=== PATIENT | male | born 1985 | race Caucasian/White ===

== ENCOUNTER → 2021-11-13 16:21 | Outpatient (CLI) | payer OTHER, SELFPAY ==
[2021-11-13 17:03] LABS: COVID19 -Nasal RAPID Negative (Negative)
== END ==
PROVIDERS: PCP Family Medicine; Visit Provider Surgery
DX: Z20.822 Contact with and (suspected) exposure to COVID-19 (principal); Z01.812 Encounter for preprocedural laboratory examination
CPT/HCPCS: 87635; C9803

== ENCOUNTER 2021-11-16 06:45 | Day surgery (SDC) | payer OTHER, SELFPAY ==
[2021-11-12 13:20] VITALS: BMI 32.1
--- NOTE | 2021-11-16 | PATH_ITS ---
[facility] Accession Number: [id number] . 01 Material submitted: . arm - RIGHT ARM MASS . 01 Diagnosis: Soft Tissue, Right Arm, Excision: Angiolipoma. MRV 11/18/2021 1719 Local . 01 Electronically signed: . Brionna Campos MD, Pathologist NPI- [id number] . 01 Gross description: . Received in formalin, labeled with the patient's name and right arm mass, and consists of a yellow, lobulated fragment of soft tissue measuring 3.4 x 1.7 x 0.8 cm. The external surface is inked blue. Serial sectioning reveals a yellow, homogenous, unremarkable cut surface. [employer] Mdm Architect sections are submitted in cassettes A1-A2. ([id number]) /[facility] 11/18/2021 0223 Local . 01 Pathologist provided ICD-10: D21.9 . 01 CPT . 709867 Specimen Comment: A courtesy copy of this report has been sent to [phone] Performed at: [address] [facility] [address] [place] [address], [place], [place] [id number] MD Danie Lobato MD Phone: [phone]
[2021-11-16] MEDS: LACTATED RINGERS 1,000 ML 42 ML IV (07:00)
[2021-11-16 07:16] VITALS: BMI 32.1
[2021-11-16] MEDS: LACTATED RINGERS 1,000 ML 84 ML IV (07:25)
[2021-11-16 07:27] VITALS: BP 122/79; PULSE 58; RESP 16; TEMP 36.4; O2SAT 98
--- NOTE | 2021-11-16 07:44 | PM.PREOP ---
Pre-operative Note COVID-19 COVID-19 status: Negative Result date/Date tested (Pos, Neg/Pending): 11/13/21 Interval Note History & Physical reviewed/Exam performed by Physician: Yes Changes to H&P: No ASA Class (for procedural sedation): I
[2021-11-16] MEDS: LIDOCAINE 1% W/EPI 4 ML INJ (08:02)
--- NOTE | 2021-11-16 08:05 | SUR.OPER ---
Supine on padded OR bed, head on pillow, Left arm secured on padded arm board at <90 degrees abduction, operative arm on padded arm table, legs uncrossed, safety belt at thigh, gel pad under heels.
[2021-11-16] MEDS: BUPIVACAINE 0.25% (PF) VIAL 7 ML INJ (08:10)
[2021-11-16 08:27] VITALS: BP 112/71; PULSE 54; RESP 15; TEMP 36.3; O2SAT 95
--- NOTE | 2021-11-16 08:28 | PM.OP.1 ---
Operative Date/Time/Diagnoses Date of procedure: 11/16/21 Time of procedure: 08:28 Pre-op diagnosis: Right arm mass Post-op diagnosis: same Procedure & Clinicians Procedure: Excisional biopsy of right arm mass Same procedure as scheduled: Yes Surgeon: Aston Lozoya Operative Notes Procedure in detail: The right arm mass was marked in the preop area and consent was signed. The patient was brought to the operating room and placed on the table in the supine position. No antibiotics were required. Sedation was administered and the right arm was prepped and draped in the usual fashion. A time-out was performed. The mass was about 5 cm x 2 cm in oriented in an oblique direction. Lidocaine with epinephrine was injected into the skin over the mass. A skin incision was made with a scalpel parallel to the long axis of the mass. Dermis was divided and a few layers of subcutaneous adipose tissue were divided exposing the mass which appeared to be a fatty lipoma type mass. The mass was entirely superficial to the fascial sheath. The mass was easily dissected free from the surrounding tissue with minimal bleeding. Few bleeders were cauterized. The muscle fascia was never violated. The mass was approximately 5 cm x 2 cm. Additional Marcaine was injected into the muscle fascia, dermis and subcutaneous tissue. The incision was then closed in layers using multiple interrupted 3-0 Vicryl dermal sutures followed by a running 4 Monocryl subcuticular stitch. Steri-Strips were applied followed by a piece of Telfa and the Tegaderm. The wound was then wrapped with Coban. EBL: 5 mL Post-operative Condition: stable Disposition: PACU
[2021-11-16 08:32] VITALS: BP 114/68; PULSE 61; RESP 14; O2SAT 98
[2021-11-16 08:37] VITALS: BP 108/70; PULSE 50; RESP 14; TEMP 36.4; O2SAT 97
[2021-11-16 08:45] VITALS: BP 110/65; PULSE 50; RESP 16; TEMP 36.4; O2SAT 98
[2021-11-16 09:00] VITALS: BP 124/78; PULSE 60; RESP 18; TEMP 36.9; O2SAT 99
== END 2021-11-16 09:05 | disposition home or self-care (01) ==
PROVIDERS: PCP Family Medicine; Referring Provider Surgery; Visit Provider Surgery
PROC: (CPT 25071; principal; 2021-11-16 07:45)
DX: D17.21 Benign lipomatous neoplasm of skin and subcutaneous tissue of right arm (principal)
CPT/HCPCS: 25071; J2250; J3010

== ENCOUNTER 2021-12-29 07:30 | Outpatient (RCR) | payer OTHER, SELFPAY ==
--- NOTE | 2021-11-09 09:30 | PT.OPPOC ---
Physical, Occupational & Speech Therapy At [facility] Current Diagnoses Pain in left knee (11/09/21) Visit Care Team Role Provider Type Donte Dietrich MD Attending Provider Non-Staff Primary Care Provider Referring Provider Specialty: Family Practice Address: [address] [place] [address], [id number] Email: Plan Of Care PT-OP-T Assessment and Plan Start: 11/05/21 16:04 Freq: Status: Active Protocol: Document 11/10/21 08:44 AMB (Rec: 11/10/21 08:55 AMB [id number]) Physical Therapy Assessment Rehab Potential Rehabilitation Potential Good Evaluation Complexity Number of Personal Factors/Comorbidities 0 Number of Body Systems Impaired 3 Clinical Presentation at Evaluation Stable Impairments Impairments Functional Activities,Pain, Strength Goals Three Impairment Strength Short Term Goal (STG) Paul will be independent and consistent with a HEP. STG Duration 4 weeks [facility] Goal (LTG) Paul will show improved LE strength by performing a full single leg squat without knee pain on the left. LTG Duration 8 weeks Two Impairment Jumping Short Term Goal (STG) Paul will hop on his left leg without knee pain/subjective feeling of weakness. STG Duration 4 weeks One Impairment Cutting Short Term Goal (STG) Paul will change direction while jogging without knee pain. STG Duration 4 weeks [facility] Goal (LTG) Paul will play tennis for 30 minute with 1/10 knee pain or less. LTG Duration 8 weeks Assessment Summary Assessment Paul attends physical therapy with a 9 month history of medial knee pain/feeling of instability with higher levels of activity most noticably with cutting. He did show pain at the posterior knee and mild hamstring weakness, but did not show signs of meniscus /ACL involvement, possible MCL involvement. Also had difficulty with single leg squat on the left, right was easy. Single leg hopping on the left was more challenging than the right, but was tolerable if small. He will benefit from physical therapy for assistance in return to sport, cutting, as he has not been able to return to this independently. Physical Therapy Plan Frequency and Duration Frequency of Treatment 2x/Week Duration of Treatment 8 weeks Plan of Care Start Date 11/10/21 Plan of Care End Date 01/05/22 Therapeutic Interventions Therapeutic Interventions Gait Training,Home Exercise Program,Joint Mobilizations, Manual Therapy,Neuromuscular Re-education,Patient/Caregiver Education,Self-Care/Home Management,Therapeutic Activities,Therapeutic Exercises Modalities Cold Pack/Ice Massage,Electric Stimulation,Hot Packs Next Visit Focus/Plan Next Note Type Treatment Note Next Visit Plan Reassess single leg squat and single leg hopping HEP Plan of Care Dates Plan of Care Start Date 11/10/21 Plan of Care End Date 01/05/22 Electronically Signed by: Jennifer Montes, PT 11/10/21 4231 If you are in agreement with this Plan of Care, please return a signed and dated copy. I have reviewed this Plan of Care and certify that the skilled therapy services above are required to meet the patient?s needs. Physician Signature Date Printed Name and Credentials Clinical Instructor Signature Printed Name and Credentials
--- NOTE | 2021-11-09 11:30 | PT.OIE ---
Current Diagnoses Pain in left knee (11/09/21) Visit Care Team Role Provider Type Donte Dietrich MD Attending Provider Non-Staff Primary Care Provider Referring Provider Specialty: Family Practice Address: [address] [place] [address], [facility] Email: Physical Therapy Initial Evaluation PT-OP-A Visit Information Start: 11/05/21 16:04 Freq: Status: Active Protocol: Document 11/09/21 10:29 AMB (Rec: 11/09/21 11:48 AMB [id number]) Out-Patient Physical Therapy Visit Information Visit Information Visit Type Initial Evaluation Visit Start Time 10:30 Visit Stop Time 11:15 Total Visit Minutes 45 Visit Number 1 PT-OP-B Current Condition Start: 11/05/21 16:04 Freq: Status: Active Protocol: Document 11/09/21 10:29 AMB (Rec: 11/09/21 11:48 AMB [id number]) Current Condition History of Current Condition Onset Date January Current Complaints L knee- medial History of Current Condition Pt was wrestling with a friend and twisted his knee and then the friend pushed on his knee with his foot. He and his friend heard a pop and stopped immediately. He could walk on the knee the rest of the day, but the next day he could not. It swelled and bruised along the medial aspect. He has not had advanced imaging, per his report his MD thought he had torn his MCL. He was moving for the [employer] and felt the need to say he was ok, so did not seek further medical treatment at the time. He has been able to push through, and is currently able to run on flat terrain, but has pain/ weakness/difficulty cutting. This is problematic for him since he would like to return to tennis and basketball. He did try to play tennis once, but it was painful and he didn 't feel like the knee supported him well. Prior Functional Status Baseline Function- ADL's Independent Baseline Function- Mobility Independent Current Functional Impairments (Reported) Functional Limitations- ADL's pain/difficulty with cutting PT-OP-C Subjective Start: 11/05/21 16:04 Freq: Status: Active Protocol: Document 11/09/21 10:30 AMB (Rec: 11/10/21 08:40 AMB [id number]) Patient Questionnaires Lower Extremity Functional Scale LEFS Score 77 OP-PT Pain Assessment Comments Pain Comments L medial knee 1-08/06 PT-OP-G Mobility & Gait Start: 11/05/21 16:04 Freq: Status: Active Protocol: Document 11/09/21 10:30 AMB (Rec: 11/10/21 08:44 AMB [id number]) OP Gait Assessment Comments Gait Comments Pt can perform full single leg squat on the right. Does have pain/difficulty on the left with full squat, able to perform sit to stand single leg without pain with good form. Hopping: double leg no pain, single leg (small hops) not painful but does not feel as strong. PT-OP-J Posture/Palpation/Skin Start: 11/05/21 16:04 Freq: Status: Active Protocol: Document 11/09/21 10:30 AMB (Rec: 11/10/21 08:40 AMB [id number]) Palpation Assessment Location One Palpation Location L knee Palpation Details Tenderness over popliteal fossa, none over hamstring tendons, no tenderness over medial/lateral knee or patella PT-OP-K Range of Motion Start: 11/05/21 16:04 Freq: Status: Active Protocol: Document 11/09/21 10:30 AMB (Rec: 11/10/21 08:40 AMB [id number]) Knee Goniometric Range of Motion Knee ROM Limitations Comments full range PT-OP-L Special Tests Start: 11/05/21 16:04 Freq: Status: Active Protocol: Document 11/09/21 10:30 AMB (Rec: 11/10/21 08:40 AMB [id number]) Special Tests Knee Special Tests Posterior Draw Test Results - Anterior Draw Test Results - Varus- 25 Degrees Test Results - Valgus- 25 Degrees Comments pt apprehensive but no significant instability palpable Reji Test Test Results - PT-OP-M Strength Start: 11/05/21 16:04 Freq: Status: Active Protocol: Document 11/09/21 10:30 AMB (Rec: 11/10/21 08:40 AMB [id number]) Knee Strength Knee Manual Muscle Testing Right Flexion (S2) 5 Normal Extension (L3) 5 Normal Left Flexion (S2) 4+ Good+ Extension (L3) 5 Normal PT-OP-Q Treatments Start: 11/05/21 16:04 Freq: Status: Active Protocol: Document 11/09/21 10:30 AMB (Rec: 11/10/21 08:40 AMB [id number]) Therapeutic Exercises Standing Exercises SL sit to stand Side left Reps/Minutes 10 single leg hop Side left Reps/Minutes 10 PT-OP-T Assessment and Plan Start: 11/05/21 16:04 Freq: Status: Active Protocol: Document 11/10/21 08:44 AMB (Rec: 11/10/21 08:55 AMB [id number]) Physical Therapy Assessment Rehab Potential Rehabilitation Potential Good Evaluation Complexity Number of Personal Factors/Comorbidities 0 Number of Body Systems Impaired 3 Clinical Presentation at Evaluation Stable Impairments Impairments Functional Activities,Pain, Strength Goals Three Impairment Strength Short Term Goal (STG) Paul will be independent and consistent with a HEP. STG Duration 4 weeks Alf Goal (LTG) Paul will show improved LE strength by performing a full single leg squat without knee pain on the left. LTG Duration 8 weeks Two Impairment Jumping Short Term Goal (STG) Paul will hop on his left leg without knee pain/subjective feeling of weakness. STG Duration 4 weeks One Impairment Cutting Short Term Goal (STG) Paul will change direction while jogging without knee pain. STG Duration 4 weeks Alf Goal (LTG) Paul will play tennis for 30 minute with 1/10 knee pain or less. LTG Duration 8 weeks Assessment Summary Assessment Paul attends physical therapy with a 9 month history of medial knee pain/feeling of instability with higher levels of activity most noticably with cutting. He did show pain at the posterior knee and mild hamstring weakness, but did not show signs of meniscus /ACL involvement, possible MCL involvement. Also had difficulty with single leg squat on the left, right was easy. Single leg hopping on the left was more challenging than the right, but was tolerable if small. He will benefit from physical therapy for assistance in return to sport, cutting, as he has not been able to return to this independently. Physical Therapy Plan Frequency and Duration Frequency of Treatment 2x/Week Duration of Treatment 8 weeks Plan of Care Start Date 11/10/21 Plan of Care End Date 01/05/22 Therapeutic Interventions Therapeutic Interventions Gait Training,Home Exercise Program,Joint Mobilizations, Manual Therapy,Neuromuscular Re-education,Patient/Caregiver Education,Self-Care/Home Management,Therapeutic Activities,Therapeutic Exercises Modalities Cold Pack/Ice Massage,Electric Stimulation,Hot Packs Next Visit Focus/Plan Next Note Type Treatment Note Next Visit Plan Reassess single leg squat and single leg hopping HEP
--- NOTE | 2021-11-13 08:17 | PT.OTN ---
Current Diagnoses Pain in left knee (11/13/21) Physical Therapy Treatment Note PT-OP-A Visit Information Start: 11/05/21 16:04 Freq: Status: Active Protocol: Document 11/13/21 07:29 AMB (Rec: 11/13/21 08:17 AMB [id number]) Out-Patient Physical Therapy Visit Information Visit Information Visit Type Treatment Note Visit Start Time 07:30 Visit Stop Time 08:15 Total Visit Minutes 45 Visit Number 2 PT-OP-B Current Condition Start: 11/05/21 16:04 Freq: Status: Active Protocol: Document 11/09/21 10:29 AMB (Rec: 11/09/21 11:48 AMB [id number]) Current Condition History of Current Condition Onset Date January Current Complaints L knee- medial History of Current Condition Pt was wrestling with a friend and twisted his knee and then the friend pushed on his knee with his foot. He and his friend heard a pop and stopped immediately. He could walk on the knee the rest of the day, but the next day he could not. It swelled and bruised along the medial aspect. He has not had advanced imaging, per his report his MD thought he had torn his MCL. He was moving for the [employer] and felt the need to say he was ok, so did not seek further medical treatment at the time. He has been able to push through, and is currently able to run on flat terrain, but has pain/ weakness/difficulty cutting. This is problematic for him since he would like to return to tennis and basketball. He did try to play tennis once, but it was painful and he didn 't feel like the knee supported him well. Prior Functional Status Baseline Function- ADL's Independent Baseline Function- Mobility Independent Current Functional Impairments (Reported) Functional Limitations- ADL's pain/difficulty with cutting PT-OP-C Subjective Start: 11/05/21 16:04 Freq: Status: Active Protocol: Document 11/13/21 07:29 AMB (Rec: 11/13/21 08:17 AMB [id number]) OP-PT Subjective Patient Comments Patient Comments Pt reports one day of mild soreness with doing hops at home, but otherwise has been feeling good. PT-OP-G Mobility & Gait Start: 11/05/21 16:04 Freq: Status: Active Protocol: Document 11/09/21 10:30 AMB (Rec: 11/10/21 08:44 AMB [id number]) OP Gait Assessment Comments Gait Comments Pt can perform full single leg squat on the right. Does have pain/difficulty on the left with full squat, able to perform sit to stand single leg without pain with good form. Hopping: double leg no pain, single leg (small hops) not painful but does not feel as strong. PT-OP-J Posture/Palpation/Skin Start: 11/05/21 16:04 Freq: Status: Active Protocol: Document 11/09/21 10:30 AMB (Rec: 11/10/21 08:40 AMB [id number]) Palpation Assessment Location One Palpation Location L knee Palpation Details Tenderness over popliteal fossa, none over hamstring tendons, no tenderness over medial/lateral knee or patella PT-OP-K Range of Motion Start: 11/05/21 16:04 Freq: Status: Active Protocol: Document 11/09/21 10:30 AMB (Rec: 11/10/21 08:40 AMB [id number]) Knee Goniometric Range of Motion Knee ROM Limitations Comments full range PT-OP-L Special Tests Start: 11/05/21 16:04 Freq: Status: Active Protocol: Document 11/09/21 10:30 AMB (Rec: 11/10/21 08:40 AMB [id number]) Special Tests Knee Special Tests Posterior Draw Test Results - Anterior Draw Test Results - Varus- 25 Degrees Test Results - Valgus- 25 Degrees Comments pt apprehensive but no significant instability palpable Reji Test Test Results - PT-OP-M Strength Start: 11/05/21 16:04 Freq: Status: Active Protocol: Document 11/09/21 10:30 AMB (Rec: 11/10/21 08:40 AMB [id number]) Knee Strength Knee Manual Muscle Testing Right Flexion (S2) 5 Normal Extension (L3) 5 Normal Left Flexion (S2) 4+ Good+ Extension (L3) 5 Normal PT-OP-Q Treatments Start: 11/05/21 16:04 Freq: Status: Active Protocol: Document 11/13/21 07:29 AMB (Rec: 11/13/21 08:17 AMB [id number]) Gym Equipment Shuttle Recovery Other- 1 Details single leg hop Resistance 37>50>62 Shuttle Recovery Platform Stable Reps/Time 12 ea Therapeutic Exercises Standing Exercises skipping Standing Exercise Name fwd Reps/Minutes 20'x4 calf stretch Standing Exercise Name CARLOS A Reps/Minutes 30x2 hamstring stretch Standing Exercise Name on stair Reps/Minutes 30x2 lateral stepping Resistance red t band loop Reps/Minutes 20'x4 Comments semi squat SL sit to stand Side left Reps/Minutes 10 single leg hop Standing Exercise Name red anantet squares- fwd good, lateral challenging Side left Reps/Minutes [address]>1 square>2 squares PT-OP-T Assessment and Plan Start: 11/05/21 16:04 Freq: Status: Active Protocol: Document 11/13/21 07:29 AMB (Rec: 11/13/21 08:17 AMB [id number]) Physical Therapy Assessment Goals Three Impairment Strength Short Term Goal (STG) Paul will be independent and consistent with a HEP. STG Duration 4 weeks Assistant Paral[employer] Goal (LTG) Paul will show improved LE strength by performing a full single leg squat without knee pain on the left. LTG Duration 8 weeks Two Impairment Jumping Short Term Goal (STG) Paul will hop on his left leg without knee pain/subjective feeling of weakness. STG Duration 4 weeks One Impairment Cutting Short Term Goal (STG) Paul will change direction while jogging without knee pain. STG Duration 4 weeks [facility] Goal (LTG) Paul will play tennis for 30 minute with 1/10 knee pain or less. LTG Duration 8 weeks Assessment Summary Assessment Paul tolerated forward hopping well, medial and lateral hopping were more challenging. Twisting remains the most problematic. Encouraged he can continue running on smooth terrain but no cutting and no running on uneven terrain. Physical Therapy Plan Next Visit Focus/Plan Next Note Type Treatment Note Next Visit Plan Reassess single leg squat and single leg hopping HEP. Progress agility as tolerated.
--- NOTE | 2021-11-18 08:15 | PT.OTN ---
Current Diagnoses Pain in left knee (11/18/21) Physical Therapy Treatment Note PT-OP-A Visit Information Start: 11/05/21 16:04 Freq: Status: Active Protocol: Document 11/18/21 07:28 SP (Rec: 11/18/21 08:20 SP [id number]) Out-Patient Physical Therapy Visit Information Visit Information Visit Type Treatment Note Visit Start Time 07:30 Visit Stop Time 08:15 Total Visit Minutes 45 Visit Number 3 Number of CITY COUNCILMAN Visits 1 PT-OP-B Current Condition Start: 11/05/21 16:04 Freq: Status: Active Protocol: Document 11/09/21 10:29 AMB (Rec: 11/09/21 11:48 AMB [id number]) Current Condition History of Current Condition Onset Date January Current Complaints L knee- medial History of Current Condition Pt was wrestling with a friend and twisted his knee and then the friend pushed on his knee with his foot. He and his friend heard a pop and stopped immediately. He could walk on the knee the rest of the day, but the next day he could not. It swelled and bruised along the medial aspect. He has not had advanced imaging, per his report his MD thought he had torn his MCL. He was moving for the [employer] and felt the need to say he was ok, so did not seek further medical treatment at the time. He has been able to push through, and is currently able to run on flat terrain, but has pain/ weakness/difficulty cutting. This is problematic for him since he would like to return to tennis and basketball. He did try to play tennis once, but it was painful and he didn 't feel like the knee supported him well. Prior Functional Status Baseline Function- ADL's Independent Baseline Function- Mobility Independent Current Functional Impairments (Reported) Functional Limitations- ADL's pain/difficulty with cutting PT-OP-C Subjective Start: 11/05/21 16:04 Freq: Status: Active Protocol: Document 11/18/21 07:28 SP (Rec: 11/18/21 08:20 SP [id number]) OP-PT Subjective Patient Comments Patient Comments Pt did good with HEP SL hopping. States usually runs 2 roxann miles. Compliant with SL squat to chair, shaky but able to do. PT-OP-G Mobility & Gait Start: 11/05/21 16:04 Freq: Status: Active Protocol: Document 11/09/21 10:30 AMB (Rec: 11/10/21 08:44 AMB [id number]) OP Gait Assessment Comments Gait Comments Pt can perform full single leg squat on the right. Does have pain/difficulty on the left with full squat, able to perform sit to stand single leg without pain with good form. Hopping: double leg no pain, single leg (small hops) not painful but does not feel as strong. PT-OP-J Posture/Palpation/Skin Start: 11/05/21 16:04 Freq: Status: Active Protocol: Document 11/09/21 10:30 AMB (Rec: 11/10/21 08:40 AMB [id number]) Palpation Assessment Location One Palpation Location L knee Palpation Details Tenderness over popliteal fossa, none over hamstring tendons, no tenderness over medial/lateral knee or patella PT-OP-K Range of Motion Start: 11/05/21 16:04 Freq: Status: Active Protocol: Document 11/09/21 10:30 AMB (Rec: 11/10/21 08:40 AMB [id number]) Knee Goniometric Range of Motion Knee ROM Limitations Comments full range PT-OP-L Special Tests Start: 11/05/21 16:04 Freq: Status: Active Protocol: Document 11/09/21 10:30 AMB (Rec: 11/10/21 08:40 AMB [id number]) Special Tests Knee Special Tests Posterior Draw Test Results - Anterior Draw Test Results - Varus- 25 Degrees Test Results - Valgus- 25 Degrees Comments pt apprehensive but no significant instability palpable Reji Test Test Results - PT-OP-M Strength Start: 11/05/21 16:04 Freq: Status: Active Protocol: Document 11/09/21 10:30 AMB (Rec: 11/10/21 08:40 AMB [id number]) Knee Strength Knee Manual Muscle Testing Right Flexion (S2) 5 Normal Extension (L3) 5 Normal Left Flexion (S2) 4+ Good+ Extension (L3) 5 Normal PT-OP-Q Treatments Start: 11/05/21 16:04 Freq: Status: Active Protocol: Document 11/18/21 07:28 SP (Rec: 11/18/21 08:20 SP [id number]) Gym Equipment Shuttle Recovery Other- 1 Details single leg hop Resistance 62 Shuttle Recovery Platform Stable Reps/Time 2x20 alternate Therapeutic Exercises Sitting Exercises HS curl Sitting Exercise Name added to HEP Side left Resistance TB #4 2x10 Equipment Used femur fully supported on chair Reps/Minutes x10 Comments cued knee alignment for no pain medial k nee Standing Exercises RDL Standing Exercise Name added to HEP Side left Resistance 10# DB Reps/Minutes x10 Comments cued slow, range maintain stability foam roll Standing Exercise Name added to HEP: quad, add, ITB, HS Side left Reps/Minutes 4 min Comments good form post demo, use of opp LE for ITB support comfort 4 way hip Standing Exercise Name added to HEP (LLE stance leg) Resistance TB #3 Equipment Used ADD/ABD/Ext/runner flex into reverse lunge Reps/Minutes 2x10 Comments cued trunk/ knee alignment lateral stepping Resistance TB #3loop Reps/Minutes 20'x4 Comments semi squat SL sit to stand Standing Exercise Name reviewed HEP Side left Equipment Used mesh chair Reps/Minutes 2x5 Comments little shaky but able, cued slow pacing descent hinge single leg hop Standing Exercise Name red carpet squares- fwd good, lateral challenging Side left Reps/Minutes [address]>1 square>2 squares Other Exercises warm up ROM Other Exercise Name walking lunges, toy soldier ( hip flexion UE reach), hip circles Reps/Minutes x5 reps each Comments review next tx. Self-Care/Home Management Treatment Education Patient Education Body Mechanics,Home Exercise Program Other Education Discussed warm up ROM before running. PT-OP-T Assessment and Plan Start: 11/05/21 16:04 Freq: Status: Active Protocol: Document 11/18/21 07:28 SP (Rec: 11/18/21 08:20 SP [id number]) Physical Therapy Assessment Goals Three Impairment Strength Short Term Goal (STG) Paul will be independent and consistent with a HEP. STG Duration 4 weeks Skilled Nursing Goal (LTG) Paul will show improved LE strength by performing a full single leg squat without knee pain on the left. LTG Duration 8 weeks Two Impairment Jumping Short Term Goal (STG) Paul will hop on his left leg without knee pain/subjective feeling of weakness. STG Duration 4 weeks One Impairment Cutting Short Term Goal (STG) Paul will change direction while jogging without knee pain. STG Duration 4 weeks Skilled Nursing Goal (LTG) Paul will play tennis for 30 minute with 1/10 knee pain or less. LTG Duration 8 weeks Assessment Summary Assessment Pt improved knee alignment and able to complete SLS stabilization strengthening RDL and 4 way hip, cue slow pacing to allow prop form. Pt tolerated added foam roll for flexibility end tx to allow decreased tension on medial L knee. Physical Therapy Plan Frequency and Duration Frequency of Treatment 2x/Week Duration of Treatment 8 weeks Plan of Care Start Date 11/10/21 Plan of Care End Date 01/05/22 Therapeutic Interventions Therapeutic Interventions Gait Training,Home Exercise Program,Joint Mobilizations, Manual Therapy,Neuromuscular Re-education,Patient/Caregiver Education,Self-Care/Home Management,Therapeutic Activities,Therapeutic Exercises Modalities Cold Pack/Ice Massage,Electric Stimulation,Hot Packs Next Visit Focus/Plan Next Note Type Treatment Note Next Visit Plan Reassess single leg squat and single leg hopping if can lateral, recheck added 4 way hip, RDL to HEP. Manual medial knee as needed. POC: Progress agility as tolerated.
--- NOTE | 2021-11-20 08:16 | PT.OTN ---
Current Diagnoses Pain in left knee (11/20/21) Physical Therapy Treatment Note PT-OP-A Visit Information Start: 11/05/21 16:04 Freq: Status: Active Protocol: Document 11/20/21 07:30 SP (Rec: 11/20/21 08:18 SP [id number]) Out-Patient Physical Therapy Visit Information Visit Information Visit Type Treatment Note Visit Start Time 07:30 Visit Stop Time 08:16 Total Visit Minutes 46 Visit Number 4 Number of MANAGER PLAY Visits 2 PT-OP-B Current Condition Start: 11/05/21 16:04 Freq: Status: Active Protocol: Document 11/09/21 10:29 AMB (Rec: 11/09/21 11:48 AMB [id number]) Current Condition History of Current Condition Onset Date January Current Complaints L knee- medial History of Current Condition Pt was wrestling with a friend and twisted his knee and then the friend pushed on his knee with his foot. He and his friend heard a pop and stopped immediately. He could walk on the knee the rest of the day, but the next day he could not. It swelled and bruised along the medial aspect. He has not had advanced imaging, per his report his MD thought he had torn his MCL. He was moving for the [employer] and felt the need to say he was ok, so did not seek further medical treatment at the time. He has been able to push through, and is currently able to run on flat terrain, but has pain/ weakness/difficulty cutting. This is problematic for him since he would like to return to tennis and basketball. He did try to play tennis once, but it was painful and he didn 't feel like the knee supported him well. Prior Functional Status Baseline Function- ADL's Independent Baseline Function- Mobility Independent Current Functional Impairments (Reported) Functional Limitations- ADL's pain/difficulty with cutting PT-OP-C Subjective Start: 11/05/21 16:04 Freq: Status: Active Protocol: Document 11/20/21 07:30 SP (Rec: 11/20/21 08:18 SP [id number]) OP-PT Subjective Patient Comments Patient Comments Pt calf sore after last tx but not bad, stated didn't do the hops since last tx. PT-OP-G Mobility & Gait Start: 11/05/21 16:04 Freq: Status: Active Protocol: Document 11/09/21 10:30 AMB (Rec: 11/10/21 08:44 AMB [id number]) OP Gait Assessment Comments Gait Comments Pt can perform full single leg squat on the right. Does have pain/difficulty on the left with full squat, able to perform sit to stand single leg without pain with good form. Hopping: double leg no pain, single leg (small hops) not painful but does not feel as strong. PT-OP-J Posture/Palpation/Skin Start: 11/05/21 16:04 Freq: Status: Active Protocol: Document 11/09/21 10:30 AMB (Rec: 11/10/21 08:40 AMB [id number]) Palpation Assessment Location One Palpation Location L knee Palpation Details Tenderness over popliteal fossa, none over hamstring tendons, no tenderness over medial/lateral knee or patella PT-OP-K Range of Motion Start: 11/05/21 16:04 Freq: Status: Active Protocol: Document 11/09/21 10:30 AMB (Rec: 11/10/21 08:40 AMB [id number]) Knee Goniometric Range of Motion Knee ROM Limitations Comments full range PT-OP-L Special Tests Start: 11/05/21 16:04 Freq: Status: Active Protocol: Document 11/09/21 10:30 AMB (Rec: 11/10/21 08:40 AMB [id number]) Special Tests Knee Special Tests Posterior Draw Test Results - Anterior Draw Test Results - Varus- 25 Degrees Test Results - Valgus- 25 Degrees Comments pt apprehensive but no significant instability palpable Reji Test Test Results - PT-OP-M Strength Start: 11/05/21 16:04 Freq: Status: Active Protocol: Document 11/09/21 10:30 AMB (Rec: 11/10/21 08:40 AMB [id number]) Knee Strength Knee Manual Muscle Testing Right Flexion (S2) 5 Normal Extension (L3) 5 Normal Left Flexion (S2) 4+ Good+ Extension (L3) 5 Normal PT-OP-Q Treatments Start: 11/05/21 16:04 Freq: Status: Active Protocol: Document 11/20/21 07:30 SP (Rec: 11/20/21 08:18 SP [id number]) Gym Equipment Shuttle Recovery quadruped Details L hip ext, single Resistance 75# Shuttle Recovery Platform Stable Reps/Time x15 Blateral Resistance 87# Shuttle Recovery Platform Unstable Reps/Time x20 lateral single press Details L knee alignment Resistance 75#>87# Shuttle Recovery Platform Stable Reps/Time x20 Other- 1 Details single leg hop Resistance 62# Shuttle Recovery Platform Stable Reps/Time 2x20 alternate Shuttle Balance SLS Details red-LLE Reps/Duration 3 min total Comments challenging (painfree), maintained 2-4 sec: cued trunk alignment, core and L hip stability bilateral squat Details red- F/B facing Reps/Duration x10 Comments #4s RANDI * cued knee alignment with feet // Therapeutic Exercises Standing Exercises squats Standing Exercise Name stated can add near something solid grasp as needed at gym Side bilateral Equipment Used bosu- dome side Reps/Minutes x10 Comments cued neutral ankle single step ups Standing Exercise Name can add at gym Side left Equipment Used bosu Reps/Minutes x10 Comments good form, painfree RDL Standing Exercise Name reviewed HEP Side left Resistance 2-10# DB Reps/Minutes x20 Comments cued slow, range maintain stability foam roll Standing Exercise Name quad, add, ITB, HS Side left Equipment Used foam roller, racquetball calf, rolling pin Reps/Minutes 4 min Comments good form post demo, use of opp LE for ITB support comfort 4 way hip Standing Exercise Name reviewed HEP (LLE stance leg) Resistance TB #3>#4 Equipment Used ADD/ABD/Ext/runner flex into reverse lunge Reps/Minutes x10 Comments cued trunk/ knee alignment skipping Standing Exercise Name amelia (height with skipping) Reps/Minutes 20'x4 SL sit to stand Standing Exercise Name reviewed HEP- Side left Equipment Used black table 18 (no doffed more stable) Reps/Minutes x15 Comments improved stability/ control single leg hop Standing Exercise Name redcarpet squares- fwd and lateral Side left Equipment Used all painfree Reps/Minutes [address]>1 square>2 squares fwd, single square lateral Other Exercises warm up ROM Other Exercise Name walking lunges, toy soldier ( hip flexion UE reach), wicho skipping Side bilateral Reps/Minutes 10 ft x2 laps each Comments good form PT-OP-T Assessment and Plan Start: 11/05/21 16:04 Freq: Status: Active Protocol: Document 11/20/21 07:30 SP (Rec: 11/20/21 08:18 SP [id number]) Physical Therapy Assessment Goals Three Impairment Strength Short Term Goal (STG) Paul will be independent and consistent with a HEP. STG Duration 4 weeks Prison Goal (LTG) Paul will show improved LE strength by performing a full single leg squat without knee pain on the left. LTG Duration 8 weeks Two Impairment Jumping Short Term Goal (STG) Paul will hop on his left leg without knee pain/subjective feeling of weakness. STG Duration 4 weeks One Impairment Cutting Short Term Goal (STG) Paul will change direction while jogging without knee pain. STG Duration 4 weeks Robot Programmer Goal (LTG) Paul will play tennis for 30 minute with 1/10 knee pain or less. LTG Duration 8 weeks Assessment Summary Assessment Pt responded well to ther ex today, painfree, able to stabilize better with shoes doffed (particular sneaker soles more for running less flat surface), donned only for shuttle rec/ SL hops this tx. Physical Therapy Plan Frequency and Duration Frequency of Treatment 2x/Week Duration of Treatment 8 weeks Plan of Care Start Date 11/10/21 Plan of Care End Date 01/05/22 Therapeutic Interventions Therapeutic Interventions Gait Training,Home Exercise Program,Joint Mobilizations, Manual Therapy,Neuromuscular Re-education,Patient/Caregiver Education,Self-Care/Home Management,Therapeutic Activities,Therapeutic Exercises Modalities Cold Pack/Ice Massage,Electric Stimulation,Hot Packs Next Visit Focus/Plan Next Note Type Treatment Note Next Visit Plan Reassess lateral SL hops, shuttle bal, BOSU ex. Manual medial knee as needed. POC: Progress agility as tolerated.
--- NOTE | 2021-11-25 07:31 | PT-OP ANOTE ---
Pt cancelled at appt time to cancel, unable to come due to woke up sick.
--- NOTE | 2021-11-27 09:00 | PT.OTN ---
Current Diagnoses Pain in left knee (11/27/21) Physical Therapy Treatment Note PT-OP-A Visit Information Start: 11/05/21 16:04 Freq: Status: Active Protocol: Document 11/27/21 08:17 SP (Rec: 11/27/21 09:02 SP [id number]) Out-Patient Physical Therapy Visit Information Visit Information Visit Type Treatment Note Visit Start Time 08:17 Visit Stop Time 09:00 Total Visit Minutes 43 Visit Number 5 Number of NATURAL FOODS CLERK Visits 3 PT-OP-B Current Condition Start: 11/05/21 16:04 Freq: Status: Active Protocol: Document 11/09/21 10:29 AMB (Rec: 11/09/21 11:48 AMB [id number]) Current Condition History of Current Condition Onset Date January Current Complaints L knee- medial History of Current Condition Pt was wrestling with a friend and twisted his knee and then the friend pushed on his knee with his foot. He and his friend heard a pop and stopped immediately. He could walk on the knee the rest of the day, but the next day he could not. It swelled and bruised along the medial aspect. He has not had advanced imaging, per his report his MD thought he had torn his MCL. He was moving for the [employer] and felt the need to say he was ok, so did not seek further medical treatment at the time. He has been able to push through, and is currently able to run on flat terrain, but has pain/ weakness/difficulty cutting. This is problematic for him since he would like to return to tennis and basketball. He did try to play tennis once, but it was painful and he didn 't feel like the knee supported him well. Prior Functional Status Baseline Function- ADL's Independent Baseline Function- Mobility Independent Current Functional Impairments (Reported) Functional Limitations- ADL's pain/difficulty with cutting PT-OP-C Subjective Start: 11/05/21 16:04 Freq: Status: Active Protocol: Document 11/27/21 08:17 SP (Rec: 11/27/21 09:02 SP [id number]) OP-PT Subjective Patient Comments Patient Comments Pt reports still getting some medial pain (pes ancerine) during LE push off. Played baseball and lobbing tennis this past week, low singh with no pain. Jogging 2-5 miles no issues with incline/decline. Patient Reported Progress Improving PT-OP-G Mobility & Gait Start: 11/05/21 16:04 Freq: Status: Active Protocol: Document 11/09/21 10:30 AMB (Rec: 11/10/21 08:44 AMB [id number]) OP Gait Assessment Comments Gait Comments Pt can perform full single leg squat on the right. Does have pain/difficulty on the left with full squat, able to perform sit to stand single leg without pain with good form. Hopping: double leg no pain, single leg (small hops) not painful but does not feel as strong. PT-OP-J Posture/Palpation/Skin Start: 11/05/21 16:04 Freq: Status: Active Protocol: Document 11/09/21 10:30 AMB (Rec: 11/10/21 08:40 AMB [id number]) Palpation Assessment Location One Palpation Location L knee Palpation Details Tenderness over popliteal fossa, none over hamstring tendons, no tenderness over medial/lateral knee or patella PT-OP-K Range of Motion Start: 11/05/21 16:04 Freq: Status: Active Protocol: Document 11/09/21 10:30 AMB (Rec: 11/10/21 08:40 AMB [id number]) Knee Goniometric Range of Motion Knee ROM Limitations Comments full range PT-OP-L Special Tests Start: 11/05/21 16:04 Freq: Status: Active Protocol: Document 11/09/21 10:30 AMB (Rec: 11/10/21 08:40 AMB [id number]) Special Tests Knee Special Tests Posterior Draw Test Results - Anterior Draw Test Results - Varus- 25 Degrees Test Results - Valgus- 25 Degrees Comments pt apprehensive but no significant instability palpable Reji Test Test Results - PT-OP-M Strength Start: 11/05/21 16:04 Freq: Status: Active Protocol: Document 11/09/21 10:30 AMB (Rec: 11/10/21 08:40 AMB [id number]) Knee Strength Knee Manual Muscle Testing Right Flexion (S2) 5 Normal Extension (L3) 5 Normal Left Flexion (S2) 4+ Good+ Extension (L3) 5 Normal PT-OP-Q Treatments Start: 11/05/21 16:04 Freq: Status: Active Protocol: Document 11/27/21 08:17 SP (Rec: 11/27/21 09:02 SP [id number]) Gym Equipment Shuttle Recovery quadruped Details L hip ext, single Resistance 75# Shuttle Recovery Platform Stable Reps/Time x15 Blateral Details jump hops Resistance 87# Shuttle Recovery Platform Unstable Reps/Time x20 lateral single press Details L knee alignment- hip abd/glut fac then painfree Resistance 87# Shuttle Recovery Platform Stable Reps/Time x20 Other- 1 Details single leg hop Resistance 62#>87# Shuttle Recovery Platform Stable Reps/Time 2x20 alternate Shuttle Balance SLS Details red-LLE Reps/Duration 3 min total Comments 60 SLS on LLE, added head turns very challenging at first improved with slow and focus on targets cued trunk alignment, core and L hip stability. bilateral squat Details red- forward, lateral Reps/Duration x10 each direction Comments #4s RANDI feet stance apart Therapeutic Exercises Standing Exercises SLS Side left Equipment Used BOSU Reps/Minutes 2 min Comments cued stabilize ankle, soft knee squats Standing Exercise Name suggested doing at gym Side bilateral Equipment Used bosu (dome side down), rail for contact support Reps/Minutes x10 Comments cued neutral ankle single step ups Standing Exercise Name Suggested performance at GYM Side left Equipment Used bosu Reps/Minutes x10 Comments good form, painfree RDL Standing Exercise Name reviewed HEP Side left Resistance 25# DB in double UE Reps/Minutes x20 Comments cued slow, range maintain stability SL sit to stand Standing Exercise Name reviewed HEP- Side left Equipment Used black table 18 (with sneaker today) Reps/Minutes x10 Comments improved stability/ control single leg hop Standing Exercise Name redcarpet squares- fwd and lateral Side left Resistance in place>1 square>2 squares fwd, single square lateral Reps/Minutes x 10 each Comments little discomfort medial L knee going to R but not limiting to do PT-OP-T Assessment and Plan Start: 11/05/21 16:04 Freq: Status: Active Protocol: Document 11/27/21 08:17 SP (Rec: 11/27/21 09:02 SP [id number]) Physical Therapy Assessment Goals Three Impairment Strength Short Term Goal (STG) Paul will be independent and consistent with a HEP. STG Duration 4 weeks Director Of Knowledge Management Goal (LTG) Paul will show improved LE strength by performing a full single leg squat without knee pain on the left. LTG Duration 8 weeks Two Impairment Jumping Short Term Goal (STG) Paul will hop on his left leg without knee pain/subjective feeling of weakness. STG Duration 4 weeks One Impairment Cutting Short Term Goal (STG) Paul will change direction while jogging without knee pain. STG Duration 4 weeks Detention Goal (LTG) Paul will play tennis for 30 minute with 1/10 knee pain or less. LTG Duration 8 weeks Assessment Summary Assessment Pt improved SLS time shuttle balance 60 sec, able to progress head turns. R/medial single leg hops still having discomfort over pes ancerine. He reported not having pain with low singh tennis baseball. Incorporated dynamic SLS this tx with BOSU with no pain and instructed incorporate in gym workouts. Physical Therapy Plan Frequency and Duration Frequency of Treatment 2x/Week Duration of Treatment 8 weeks Plan of Care Start Date 11/10/21 Plan of Care End Date 01/05/22 Therapeutic Interventions Therapeutic Interventions Gait Training,Home Exercise Program,Joint Mobilizations, Manual Therapy,Neuromuscular Re-education,Patient/Caregiver Education,Self-Care/Home Management,Therapeutic Activities,Therapeutic Exercises Modalities Cold Pack/Ice Massage,Electric Stimulation,Hot Packs Next Visit Focus/Plan Next Note Type Treatment Note Next Visit Plan Next tx add lateral cutting activity. POC: Progress agility as tolerated.
--- NOTE | 2021-12-02 08:01 | PT.OTN ---
Current Diagnoses Pain in left knee (12/02/21) Physical Therapy Treatment Note PT-OP-A Visit Information Start: 11/05/21 16:04 Freq: Status: Active Protocol: Document 12/02/21 07:31 AMB (Rec: 12/02/21 08:00 AMB [id number]) Out-Patient Physical Therapy Visit Information Visit Information Visit Type Treatment Note Visit Start Time 07:30 Visit Stop Time 08:15 Total Visit Minutes 15 Visit Number 6 Number of LARD MAKER Visits 0 PT-OP-B Current Condition Start: 11/05/21 16:04 Freq: Status: Active Protocol: Document 11/09/21 10:29 AMB (Rec: 11/09/21 11:48 AMB [id number]) Current Condition History of Current Condition Onset Date January Current Complaints L knee- medial History of Current Condition Pt was wrestling with a friend and twisted his knee and then the friend pushed on his knee with his foot. He and his friend heard a pop and stopped immediately. He could walk on the knee the rest of the day, but the next day he could not. It swelled and bruised along the medial aspect. He has not had advanced imaging, per his report his MD thought he had torn his MCL. He was moving for the [employer] and felt the need to say he was ok, so did not seek further medical treatment at the time. He has been able to push through, and is currently able to run on flat terrain, but has pain/ weakness/difficulty cutting. This is problematic for him since he would like to return to tennis and basketball. He did try to play tennis once, but it was painful and he didn 't feel like the knee supported him well. Prior Functional Status Baseline Function- ADL's Independent Baseline Function- Mobility Independent Current Functional Impairments (Reported) Functional Limitations- ADL's pain/difficulty with cutting PT-OP-C Subjective Start: 11/05/21 16:04 Freq: Status: Active Protocol: Document 12/02/21 07:31 AMB (Rec: 12/02/21 08:00 AMB [id number]) OP-PT Subjective Patient Comments Patient Comments Pt attends with recent onset pain, was playing tennis and thinks he hurt his back, is limping right now, injury just happened. PT-OP-G Mobility & Gait Start: 11/05/21 16:04 Freq: Status: Active Protocol: Document 11/09/21 10:30 AMB (Rec: 11/10/21 08:44 AMB [id number]) OP Gait Assessment Comments Gait Comments Pt can perform full single leg squat on the right. Does have pain/difficulty on the left with full squat, able to perform sit to stand single leg without pain with good form. Hopping: double leg no pain, single leg (small hops) not painful but does not feel as strong. PT-OP-J Posture/Palpation/Skin Start: 11/05/21 16:04 Freq: Status: Active Protocol: Document 11/09/21 10:30 AMB (Rec: 11/10/21 08:40 AMB [id number]) Palpation Assessment Location One Palpation Location L knee Palpation Details Tenderness over popliteal fossa, none over hamstring tendons, no tenderness over medial/lateral knee or patella PT-OP-K Range of Motion Start: 11/05/21 16:04 Freq: Status: Active Protocol: Document 11/09/21 10:30 AMB (Rec: 11/10/21 08:40 AMB [id number]) Knee Goniometric Range of Motion Knee ROM Limitations Comments full range PT-OP-L Special Tests Start: 11/05/21 16:04 Freq: Status: Active Protocol: Document 11/09/21 10:30 AMB (Rec: 11/10/21 08:40 AMB [id number]) Special Tests Knee Special Tests Posterior Draw Test Results - Anterior Draw Test Results - Varus- 25 Degrees Test Results - Valgus- 25 Degrees Comments pt apprehensive but no significant instability palpable Reji Test Test Results - PT-OP-M Strength Start: 11/05/21 16:04 Freq: Status: Active Protocol: Document 11/09/21 10:30 AMB (Rec: 11/10/21 08:40 AMB [id number]) Knee Strength Knee Manual Muscle Testing Right Flexion (S2) 5 Normal Extension (L3) 5 Normal Left Flexion (S2) 4+ Good+ Extension (L3) 5 Normal PT-OP-Q Treatments Start: 11/05/21 16:04 Freq: Status: Active Protocol: Document 12/02/21 07:31 AMB (Rec: 12/02/21 08:00 AMB [id number]) Self-Care/Home Management Treatment Education Other Education Assessed recent onset pain that make pt unable to progress with knee PT. He has pain at lower thoracic on the right, worst with breath/ cough. Offered taping which pt declined. PT-OP-T Assessment and Plan Start: 11/05/21 16:04 Freq: Status: Active Protocol: Document 12/02/21 07:31 AMB (Rec: 12/02/21 08:00 AMB [id number]) Physical Therapy Assessment Goals Three Impairment Strength Short Term Goal (STG) Paul will be independent and consistent with a HEP. STG Duration 4 weeks Machine Zipper Trimmer Goal (LTG) Paul will show improved LE strength by performing a full single leg squat without knee pain on the left. LTG Duration 8 weeks Two Impairment Jumping Short Term Goal (STG) Paul will hop on his left leg without knee pain/subjective feeling of weakness. STG Duration 4 weeks One Impairment Cutting Short Term Goal (STG) Paul will change direction while jogging without knee pain. STG Duration 4 weeks Nursing Home Goal (LTG) Paul will play tennis for 30 minute with 1/10 knee pain or less. LTG Duration 8 weeks Assessment Summary Assessment Pt with likely rib injury, as has pain with breathing, coughing. On right side, he had been practicing serves. Pt would like to leave early, as he is busy with work today. Given to go ice pack, encouraged to ice. Physical Therapy Plan Next Visit Focus/Plan Next Note Type Treatment Note Next Visit Plan Next tx add lateral cutting activity. POC: Progress agility as tolerated.
--- NOTE | 2021-12-04 14:26 | PT.OTN ---
Current Diagnoses Pain in left knee (12/04/21) Physical Therapy Treatment Note PT-OP-A Visit Information Start: 11/05/21 16:04 Freq: Status: Active Protocol: Document 12/04/21 07:30 AMB (Rec: 12/04/21 08:18 AMB [id number]) Out-Patient Physical Therapy Visit Information Visit Information Visit Type Treatment Note Visit Start Time 07:30 Visit Stop Time 08:15 Total Visit Minutes 45 Visit Number 7 PT-OP-B Current Condition Start: 11/05/21 16:04 Freq: Status: Active Protocol: Document 11/09/21 10:29 AMB (Rec: 11/09/21 11:48 AMB [id number]) Current Condition History of Current Condition Onset Date January Current Complaints L knee- medial History of Current Condition Pt was wrestling with a friend and twisted his knee and then the friend pushed on his knee with his foot. He and his friend heard a pop and stopped immediately. He could walk on the knee the rest of the day, but the next day he could not. It swelled and bruised along the medial aspect. He has not had advanced imaging, per his report his MD thought he had torn his MCL. He was moving for the [employer] and felt the need to say he was ok, so did not seek further medical treatment at the time. He has been able to push through, and is currently able to run on flat terrain, but has pain/ weakness/difficulty cutting. This is problematic for him since he would like to return to tennis and basketball. He did try to play tennis once, but it was painful and he didn 't feel like the knee supported him well. Prior Functional Status Baseline Function- ADL's Independent Baseline Function- Mobility Independent Current Functional Impairments (Reported) Functional Limitations- ADL's pain/difficulty with cutting PT-OP-C Subjective Start: 11/05/21 16:04 Freq: Status: Active Protocol: Document 12/04/21 07:30 AMB (Rec: 12/04/21 08:18 AMB [id number]) OP-PT Subjective Patient Comments Patient Comments Pt's rib pain is better, but still there. PT-OP-G Mobility & Gait Start: 11/05/21 16:04 Freq: Status: Active Protocol: Document 11/09/21 10:30 AMB (Rec: 11/10/21 08:44 AMB [id number]) OP Gait Assessment Comments Gait Comments Pt can perform full single leg squat on the right. Does have pain/difficulty on the left with full squat, able to perform sit to stand single leg without pain with good form. Hopping: double leg no pain, single leg (small hops) not painful but does not feel as strong. PT-OP-J Posture/Palpation/Skin Start: 11/05/21 16:04 Freq: Status: Active Protocol: Document 11/09/21 10:30 AMB (Rec: 11/10/21 08:40 AMB [id number]) Palpation Assessment Location One Palpation Location L knee Palpation Details Tenderness over popliteal fossa, none over hamstring tendons, no tenderness over medial/lateral knee or patella PT-OP-K Range of Motion Start: 11/05/21 16:04 Freq: Status: Active Protocol: Document 11/09/21 10:30 AMB (Rec: 11/10/21 08:40 AMB [id number]) Knee Goniometric Range of Motion Knee ROM Limitations Comments full range PT-OP-L Special Tests Start: 11/05/21 16:04 Freq: Status: Active Protocol: Document 11/09/21 10:30 AMB (Rec: 11/10/21 08:40 AMB [id number]) Special Tests Knee Special Tests Posterior Draw Test Results - Anterior Draw Test Results - Varus- 25 Degrees Test Results - Valgus- 25 Degrees Comments pt apprehensive but no significant instability palpable Reji Test Test Results - PT-OP-M Strength Start: 11/05/21 16:04 Freq: Status: Active Protocol: Document 11/09/21 10:30 AMB (Rec: 11/10/21 08:40 AMB [id number]) Knee Strength Knee Manual Muscle Testing Right Flexion (S2) 5 Normal Extension (L3) 5 Normal Left Flexion (S2) 4+ Good+ Extension (L3) 5 Normal PT-OP-Q Treatments Start: 11/05/21 16:04 Freq: Status: Active Protocol: Document 12/04/21 14:07 AMB (Rec: 12/04/21 14:25 AMB [id number]) Gym Equipment Shuttle Balance bilateral squat Details red- forward, lateral Reps/Duration x10 each direction Comments #4s RANDI feet stance apart; then progressed to partial lunges Therapeutic Exercises Standing Exercises single leg hop Standing Exercise Name agility ladder Side left Resistance in place>1 square>2 squares fwd, single square lateral, 1 square diagonal Reps/Minutes x 10 each Comments little discomfort medial L knee going to R but not limiting to do PT-OP-T Assessment and Plan Start: 11/05/21 16:04 Freq: Status: Active Protocol: Document 12/04/21 14:07 AMB (Rec: 12/04/21 14:25 AMB [id number]) Physical Therapy Assessment Goals Three Impairment Strength Short Term Goal (STG) Paul will be independent and consistent with a HEP. STG Duration MET Group Home Goal (LTG) Paul will show improved LE strength by performing a full single leg squat without knee pain on the left. LTG Duration MET Two Impairment Jumping Short Term Goal (STG) Paul will hop on his left leg without knee pain/subjective feeling of weakness. STG Duration 4 weeks One Impairment Cutting Short Term Goal (STG) Paul will change direction while jogging without knee pain. STG Duration 4 weeks Wire Stitcher Operator Goal (LTG) Paul will play tennis for 30 minute with 1/10 knee pain or less. LTG Duration 8 weeks Assessment Summary Assessment Time today spent discussing pt 's concerns with return to sport, reasons for imaging vs conservative treatment. 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 He continues to have discomfort with medial cutting /hopping motions, not really trust the leg for higher level sporting activities. He is going to follow up with his physician in regards to further diagnostics. Physical Therapy Plan Frequency and Duration Frequency of Treatment 1x/Week Duration of Treatment 8 weeks Plan of Care Start Date 12/04/21 Plan of Care End Date 01/29/22 Therapeutic Interventions Therapeutic Interventions Gait Training,Home Exercise Program,Joint Mobilizations, Manual Therapy,Neuromuscular Re-education,Patient/Caregiver Education,Self-Care/Home Management,Therapeutic Activities,Therapeutic Exercises Modalities Cold Pack/Ice Massage,Electric Stimulation,Hot Packs Next Visit Focus/Plan Next Note Type Treatment Note Next Visit Plan Next tx add lateral cutting activity, follow up on if he has seen his MD/ request further diagnostics.
--- NOTE | 2021-12-04 14:29 | PT.OPPOC ---
Physical, Occupational & Speech Therapy At [facility] Current Diagnoses Pain in left knee (12/04/21) Visit Care Team Role Provider Type Donte Dietrich MD Attending Provider Non-Staff Primary Care Provider Referring Provider Specialty: Family Practice Address: [address] [place] [address], [phone] Email: Plan Of Care PT-OP-T Assessment and Plan Start: 11/05/21 16:04 Freq: Status: Active Protocol: Document 12/04/21 14:07 AMB (Rec: 12/04/21 14:25 AMB [id number]) Physical Therapy Assessment Goals Three Impairment Strength Short Term Goal (STG) Paul will be independent and consistent with a HEP. STG Duration MET Riddler Operator Goal (LTG) Paul will show improved LE strength by performing a full single leg squat without knee pain on the left. LTG Duration MET Two Impairment Jumping Short Term Goal (STG) Paul will hop on his left leg without knee pain/subjective feeling of weakness. STG Duration 4 weeks One Impairment Cutting Short Term Goal (STG) Paul will change direction while jogging without knee pain. STG Duration 4 weeks Retirement Goal (LTG) Paul will play tennis for 30 minute with 1/10 knee pain or less. LTG Duration 8 weeks Assessment Summary Assessment Time today spent discussing pt 's concerns with return to sport, reasons for imaging vs conservative treatment. 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 He continues to have discomfort with medial cutting /hopping motions, not really trust the leg for higher level sporting activities. He is going to follow up with his physician in regards to further diagnostics. Physical Therapy Plan Frequency and Duration Frequency of Treatment 1x/Week Duration of Treatment 8 weeks Plan of Care Start Date 12/04/21 Plan of Care End Date 01/29/22 Therapeutic Interventions Therapeutic Interventions Gait Training,Home Exercise Program,Joint Mobilizations, Manual Therapy,Neuromuscular Re-education,Patient/Caregiver Education,Self-Care/Home Management,Therapeutic Activities,Therapeutic Exercises Modalities Cold Pack/Ice Massage,Electric Stimulation,Hot Packs Next Visit Focus/Plan Next Note Type Treatment Note Next Visit Plan Next tx add lateral cutting activity, follow up on if he has seen his MD/ request further diagnostics. Plan of Care Dates Plan of Care Start Date 12/04/21 Plan of Care End Date 01/29/22 Electronically Signed by: Jennifer Montes, PT 12/04/21 2592 If you are in agreement with this Plan of Care, please return a signed and dated copy. I have reviewed this Plan of Care and certify that the skilled therapy services above are required to meet the patient?s needs. Physician Signature Date Printed Name and Credentials Clinical Instructor Signature Printed Name and Credentials
--- NOTE | 2021-12-08 08:15 | PT.OTN ---
Current Diagnoses Pain in left knee (12/08/21) Physical Therapy Treatment Note PT-OP-A Visit Information Start: 11/05/21 16:04 Freq: Status: Active Protocol: Document 12/08/21 07:31 SP (Rec: 12/08/21 08:16 SP [id number]) Out-Patient Physical Therapy Visit Information Visit Information Visit Type Treatment Note Visit Start Time 07:31 Visit Stop Time 08:15 Total Visit Minutes 44 Visit Number 8 Number of DATA WAREHOUSE SPECIALIST Visits 1 PT-OP-B Current Condition Start: 11/05/21 16:04 Freq: Status: Active Protocol: Document 11/09/21 10:29 AMB (Rec: 11/09/21 11:48 AMB [id number]) Current Condition History of Current Condition Onset Date January Current Complaints L knee- medial History of Current Condition Pt was wrestling with a friend and twisted his knee and then the friend pushed on his knee with his foot. He and his friend heard a pop and stopped immediately. He could walk on the knee the rest of the day, but the next day he could not. It swelled and bruised along the medial aspect. He has not had advanced imaging, per his report his MD thought he had torn his MCL. He was moving for the [email or web address] and felt the need to say he was ok, so did not seek further medical treatment at the time. He has been able to push through, and is currently able to run on flat terrain, but has pain/ weakness/difficulty cutting. This is problematic for him since he would like to return to tennis and basketball. He did try to play tennis once, but it was painful and he didn 't feel like the knee supported him well. Prior Functional Status Baseline Function- ADL's Independent Baseline Function- Mobility Independent Current Functional Impairments (Reported) Functional Limitations- ADL's pain/difficulty with cutting PT-OP-C Subjective Start: 11/05/21 16:04 Freq: Status: Active Protocol: Document 12/04/21 07:30 AMB (Rec: 12/04/21 08:18 AMB [id number]) OP-PT Subjective Patient Comments Patient Comments Pt's rib pain is better, but still there. PT-OP-G Mobility & Gait Start: 11/05/21 16:04 Freq: Status: Active Protocol: Document 11/09/21 10:30 AMB (Rec: 11/10/21 08:44 AMB [id number]) OP Gait Assessment Comments Gait Comments Pt can perform full single leg squat on the right. Does have pain/difficulty on the left with full squat, able to perform sit to stand single leg without pain with good form. Hopping: double leg no pain, single leg (small hops) not painful but does not feel as strong. PT-OP-J Posture/Palpation/Skin Start: 11/05/21 16:04 Freq: Status: Active Protocol: Document 11/09/21 10:30 AMB (Rec: 11/10/21 08:40 AMB [id number]) Palpation Assessment Location One Palpation Location L knee Palpation Details Tenderness over popliteal fossa, none over hamstring tendons, no tenderness over medial/lateral knee or patella PT-OP-K Range of Motion Start: 11/05/21 16:04 Freq: Status: Active Protocol: Document 11/09/21 10:30 AMB (Rec: 11/10/21 08:40 AMB [id number]) Knee Goniometric Range of Motion Knee ROM Limitations Comments full range PT-OP-L Special Tests Start: 11/05/21 16:04 Freq: Status: Active Protocol: Document 11/09/21 10:30 AMB (Rec: 11/10/21 08:40 AMB [id number]) Special Tests Knee Special Tests Posterior Draw Test Results - Anterior Draw Test Results - Varus- 25 Degrees Test Results - Valgus- 25 Degrees Comments pt apprehensive but no significant instability palpable Reji Test Test Results - PT-OP-M Strength Start: 11/05/21 16:04 Freq: Status: Active Protocol: Document 11/09/21 10:30 AMB (Rec: 11/10/21 08:40 AMB [id number]) Knee Strength Knee Manual Muscle Testing Right Flexion (S2) 5 Normal Extension (L3) 5 Normal Left Flexion (S2) 4+ Good+ Extension (L3) 5 Normal PT-OP-Q Treatments Start: 11/05/21 16:04 Freq: Status: Active Protocol: Document 12/08/21 07:31 SP (Rec: 12/08/21 08:16 SP [id number]) Gym Equipment Shuttle Recovery Harmeet press Resistance 150# Shuttle Recovery Platform Unstable Reps/Time x15 SL press Details cued slow pacing for knee alignment control Resistance 137# stable x15 reps, 100# unstable Shuttle Recovery Platform Stable,Unstable Blateral Details jump hops Resistance 87# Shuttle Recovery Platform Unstable Reps/Time x10 Other- 1 Details single leg hop Resistance 87# Shuttle Recovery Platform Stable Reps/Time 6x5 reps alternate Shuttle Balance SLS Details red-LLE Reps/Duration 3 min total Comments 50 SLS on LLE, 20 SLS RLE bilateral squat Details red- forward, lateral Reps/Duration x10 each direction Comments #8s RANDI feet stance apart; then progressed to partial lunges Sport Cord red Exercise Details lateral hops Cord/Resistance red (sneakers doffed) Reps/Duration 3x10 Comments feels discomfort 1/10 eccentric land into medial L knee if knee not completely squared up alignment. Therapeutic Exercises Standing Exercises SLS Standing Exercise Name forward, diagonal stance Side left Equipment Used blue foam, throw into trampoline Reps/Minutes x20 Comments cued stabilize ankle, soft knee and neutral alignment- good painfree RDL Standing Exercise Name reviewed HEP- alternate each LE Side bilateral Resistance 25# DB opp UE from stance LE Reps/Minutes 2x10 Comments cued slow, range maintain stability skipping Standing Exercise Name amelia (height with skipping) Reps/Minutes 20'x2 Comments painfree warm up single leg hop Standing Exercise Name agility ladder forward, lateral Side left Resistance in place>1 square>2 squares fwd, single square lateral, 1 square diagonal Equipment Used square: f/b/diagonal Reps/Minutes x 10 each Comments little discomfort medial L knee medial upper R corner noted PT-OP-T Assessment and Plan Start: 11/05/21 16:04 Freq: Status: Active Protocol: Document 12/08/21 07:31 SP (Rec: 12/08/21 08:16 SP [id number]) Physical Therapy Assessment Goals Three Impairment Strength Short Term Goal (STG) Paul will be independent and consistent with a HEP. STG Duration MET Retirement Goal (LTG) Paul will show improved LE strength by performing a full single leg squat without knee pain on the left. LTG Duration MET Two Impairment Jumping Short Term Goal (STG) Paul will hop on his left leg without knee pain/subjective feeling of weakness. STG Duration 4 weeks One Impairment Cutting Short Term Goal (STG) Paul will change direction while jogging without knee pain. STG Duration 4 weeks Retirement Goal (LTG) Paul will play tennis for 30 minute with 1/10 knee pain or less. LTG Duration 8 weeks Assessment Summary Assessment Pt improved stability with unstable surface, dynamics lateral hops, though still continues to have low discomfort over medial L knee if knee caves medial but when self corrections alignment is fine. He stated hasn't but wants to contact for further imaging with physician. Physical Therapy Plan Frequency and Duration Frequency of Treatment 1x/Week Duration of Treatment 8 weeks Plan of Care Start Date 12/04/21 Plan of Care End Date 01/29/22 Therapeutic Interventions Therapeutic Interventions Gait Training,Home Exercise Program,Joint Mobilizations, Manual Therapy,Neuromuscular Re-education,Patient/Caregiver Education,Self-Care/Home Management,Therapeutic Activities,Therapeutic Exercises Modalities Cold Pack/Ice Massage,Electric Stimulation,Hot Packs Next Visit Focus/Plan Next Note Type Treatment Note Next Visit Plan Response to and continue to incorporate lateral cutting activity, follow up on if he has seen his MD/ request further diagnostics.
--- NOTE | 2021-12-17 07:51 | PT-OP ANOTE ---
NO show- called and left vm
--- NOTE | 2021-12-29 08:15 | PT.OTN ---
Current Diagnoses Pain in left knee (12/29/21) Physical Therapy Treatment Note PT-OP-A Visit Information Start: 11/05/21 16:04 Freq: Status: Active Protocol: Document 12/29/21 07:27 AMB (Rec: 12/29/21 07:55 AMB [id number]) Out-Patient Physical Therapy Visit Information Visit Information Visit Type Treatment Note Visit Start Time 07:30 Visit Stop Time 08:15 Total Visit Minutes 45 Visit Number 9 PT-OP-B Current Condition Start: 11/05/21 16:04 Freq: Status: Active Protocol: Document 11/09/21 10:29 AMB (Rec: 11/09/21 11:48 AMB [id number]) Current Condition History of Current Condition Onset Date January Current Complaints L knee- medial History of Current Condition Pt was wrestling with a friend and twisted his knee and then the friend pushed on his knee with his foot. He and his friend heard a pop and stopped immediately. He could walk on the knee the rest of the day, but the next day he could not. It swelled and bruised along the medial aspect. He has not had advanced imaging, per his report his MD thought he had torn his MCL. He was moving for the [place] and felt the need to say he was ok, so did not seek further medical treatment at the time. He has been able to push through, and is currently able to run on flat terrain, but has pain/ weakness/difficulty cutting. This is problematic for him since he would like to return to tennis and basketball. He did try to play tennis once, but it was painful and he didn 't feel like the knee supported him well. Prior Functional Status Baseline Function- ADL's Independent Baseline Function- Mobility Independent Current Functional Impairments (Reported) Functional Limitations- ADL's pain/difficulty with cutting PT-OP-C Subjective Start: 11/05/21 16:04 Freq: Status: Active Protocol: Document 12/29/21 07:27 AMB (Rec: 12/29/21 07:55 AMB [id number]) OP-PT Subjective Patient Comments Patient Comments Pt ran over the weekend and has been noticing more patellar tendon pain since that. He ran over here today and is feeling ok, but is feeling patella a little. PT-OP-G Mobility & Gait Start: 11/05/21 16:04 Freq: Status: Active Protocol: Document 11/09/21 10:30 AMB (Rec: 11/10/21 08:44 AMB [id number]) OP Gait Assessment Comments Gait Comments Pt can perform full single leg squat on the right. Does have pain/difficulty on the left with full squat, able to perform sit to stand single leg without pain with good form. Hopping: double leg no pain, single leg (small hops) not painful but does not feel as strong. PT-OP-J Posture/Palpation/Skin Start: 11/05/21 16:04 Freq: Status: Active Protocol: Document 11/09/21 10:30 AMB (Rec: 11/10/21 08:40 AMB [id number]) Palpation Assessment Location One Palpation Location L knee Palpation Details Tenderness over popliteal fossa, none over hamstring tendons, no tenderness over medial/lateral knee or patella PT-OP-K Range of Motion Start: 11/05/21 16:04 Freq: Status: Active Protocol: Document 11/09/21 10:30 AMB (Rec: 11/10/21 08:40 AMB [id number]) Knee Goniometric Range of Motion Knee ROM Limitations Comments full range PT-OP-L Special Tests Start: 11/05/21 16:04 Freq: Status: Active Protocol: Document 11/09/21 10:30 AMB (Rec: 11/10/21 08:40 AMB [id number]) Special Tests Knee Special Tests Posterior Draw Test Results - Anterior Draw Test Results - Varus- 25 Degrees Test Results - Valgus- 25 Degrees Comments pt apprehensive but no significant instability palpable Reji Test Test Results - PT-OP-M Strength Start: 11/05/21 16:04 Freq: Status: Active Protocol: Document 11/09/21 10:30 AMB (Rec: 11/10/21 08:40 AMB [id number]) Knee Strength Knee Manual Muscle Testing Right Flexion (S2) 5 Normal Extension (L3) 5 Normal Left Flexion (S2) 4+ Good+ Extension (L3) 5 Normal PT-OP-Q Treatments Start: 11/05/21 16:04 Freq: Status: Active Protocol: Document 12/29/21 07:27 AMB (Rec: 12/29/21 07:55 AMB [id number]) Gym Equipment Shuttle Balance bilateral squat Details red- forward, lateral Reps/Duration x10 each direction Comments #8s RANDI feet stance apart; then progressed to partial lunges and lateral weight shifts Therapeutic Exercises Sidelying Exercises 1 Sidelying Exercise Name sideplank with hip abduction Side bilateral Standing Exercises quad stretch Reps/Minutes 30x2 calf stretch Standing Exercise Name 30x2 hamstring stretch Standing Exercise Name 30x2 Comments stairs single leg hop Standing Exercise Name agility ladder forward, lateral Side left Resistance in place>1 square>2 squares fwd, single square lateral, 1 square diagonal Equipment Used square: f/b/diagonal Reps/Minutes x 10 each Comments little discomfort medial L knee medial upper R corner noted Other Exercises bruce pose Reps/Minutes 2 min quadruped Other Exercise Name hip extension with knee flexed to 90 Reps/Minutes 10 PT-OP-T Assessment and Plan Start: 11/05/21 16:04 Freq: Status: Active Protocol: Document 12/29/21 07:27 AMB (Rec: 12/29/21 07:55 AMB [id number]) Physical Therapy Assessment Goals Three Impairment Strength Short Term Goal (STG) Paul will be independent and consistent with a HEP. STG Duration MET Sales Associate Cashier Goal (LTG) Paul will show improved LE strength by performing a full single leg squat without knee pain on the left. LTG Duration MET Two Impairment Jumping Short Term Goal (STG) Paul will hop on his left leg without knee pain/subjective feeling of weakness. STG Duration 4 weeks One Impairment Cutting Short Term Goal (STG) Paul will change direction while jogging without knee pain. STG Duration 4 weeks Sales Associate Cashier Goal (LTG) Paul will play tennis for 30 minute with 1/10 knee pain or less. LTG Duration 8 weeks Assessment Summary Assessment Pt did have more patellar tendon pain today after his most recent run. Did tolerate little hopslaterally, but did have pain. Physical Therapy Plan Next Visit Focus/Plan Next Note Type Treatment Note Next Visit Plan Response to and continue to incorporate lateral cutting activity, follow up on if he has seen his MD/ request further diagnostics.
--- NOTE | 2022-01-19 07:40 | PT-OP ANOTE ---
Pt did not show for today's appt, left message regarding and policy of no show fee. Offered call back and [employer] openings today or tomorrow, forgot to mention only 1 more appt scheduled.
--- NOTE | 2022-02-05 13:21 | PT.OPDS ---
Current Diagnoses Pain in left knee (12/29/21) Visit Care Team Role Provider Type Donte Dietrich MD Attending Provider Non-Staff Primary Care Provider Referring Provider Specialty: Family Practice Address: [address] [place] [address], [id number] Email: Visit Number Visit Number 9 Discharge Summary PT-OP-B Current Condition Start: 11/05/21 16:04 Freq: Status: Active Protocol: Document 11/09/21 10:29 AMB (Rec: 11/09/21 11:48 AMB [id number]) Current Condition History of Current Condition Onset Date January Current Complaints L knee- medial History of Current Condition Pt was wrestling with a friend and twisted his knee and then the friend pushed on his knee with his foot. He and his friend heard a pop and stopped immediately. He could walk on the knee the rest of the day, but the next day he could not. It swelled and bruised along the medial aspect. He has not had advanced imaging, per his report his MD thought he had torn his MCL. He was moving for the [place] and felt the need to say he was ok, so did not seek further medical treatment at the time. He has been able to push through, and is currently able to run on flat terrain, but has pain/ weakness/difficulty cutting. This is problematic for him since he would like to return to tennis and basketball. He did try to play tennis once, but it was painful and he didn 't feel like the knee supported him well. Prior Functional Status Baseline Function- ADL's Independent Baseline Function- Mobility Independent Current Functional Impairments (Reported) Functional Limitations- ADL's pain/difficulty with cutting PT-OP-C Subjective Start: 11/05/21 16:04 Freq: Status: Active Protocol: Document 12/29/21 07:27 AMB (Rec: 12/29/21 07:55 AMB [id number]) OP-PT Subjective Patient Comments Patient Comments Pt ran over the weekend and has been noticing more patellar tendon pain since that. He ran over here today and is feeling ok, but is feeling patella a little. PT-OP-G Mobility & Gait Start: 11/05/21 16:04 Freq: Status: Active Protocol: Document 11/09/21 10:30 AMB (Rec: 11/10/21 08:44 AMB [id number]) OP Gait Assessment Comments Gait Comments Pt can perform full single leg squat on the right. Does have pain/difficulty on the left with full squat, able to perform sit to stand single leg without pain with good form. Hopping: double leg no pain, single leg (small hops) not painful but does not feel as strong. PT-OP-J Posture/Palpation/Skin Start: 11/05/21 16:04 Freq: Status: Active Protocol: Document 11/09/21 10:30 AMB (Rec: 11/10/21 08:40 AMB [id number]) Palpation Assessment Location One Palpation Location L knee Palpation Details Tenderness over popliteal fossa, none over hamstring tendons, no tenderness over medial/lateral knee or patella PT-OP-K Range of Motion Start: 11/05/21 16:04 Freq: Status: Active Protocol: Document 11/09/21 10:30 AMB (Rec: 11/10/21 08:40 AMB [id number]) Knee Goniometric Range of Motion Knee ROM Limitations Comments full range PT-OP-L Special Tests Start: 11/05/21 16:04 Freq: Status: Active Protocol: Document 11/09/21 10:30 AMB (Rec: 11/10/21 08:40 AMB [id number]) Special Tests Knee Special Tests Posterior Draw Test Results - Anterior Draw Test Results - Varus- 25 Degrees Test Results - Valgus- 25 Degrees Comments pt apprehensive but no significant instability palpable Reji Test Test Results - PT-OP-M Strength Start: 11/05/21 16:04 Freq: Status: Active Protocol: Document 11/09/21 10:30 AMB (Rec: 11/10/21 08:40 AMB [id number]) Knee Strength Knee Manual Muscle Testing Right Flexion (S2) 5 Normal Extension (L3) 5 Normal Left Flexion (S2) 4+ Good+ Extension (L3) 5 Normal PT-OP-T Assessment and Plan Start: 11/05/21 16:04 Freq: Status: Active Protocol: Document 02/05/22 13:18 AMB (Rec: 02/05/22 13:21 AMB [id number]) Physical Therapy Assessment Goals Three Impairment Strength Short Term Goal (STG) Paul will be independent and consistent with a HEP. STG Duration MET Meter Changes Records Clerk Goal (LTG) Paul will show improved LE strength by performing a full single leg squat without knee pain on the left. LTG Duration MET Two Impairment Jumping Short Term Goal (STG) Paul will hop on his left leg without knee pain/subjective feeling of weakness. STG Duration 4 weeks One Impairment Cutting Short Term Goal (STG) Paul will change direction while jogging without knee pain. STG Duration 4 weeks Half-Way Goal (LTG) Paul will play tennis for 30 minute with 1/10 knee pain or less. LTG Duration 8 weeks Assessment Summary Assessment Pt no showed one appointment and then canceled his last remaining appointment. He had intermittently met some of his goals, at times saying that the pain wasn't a big deal, but at others stating that he wanted to continue treatment and wanted to follow up with his physician regarding imaging. He will therefore be discharged due to cancels/ no shows, but could follow up at a time when he can consistently attend therapy with a new referral. Physical Therapy Plan Discharge Physical Therapy Discharge Reasons No Longer Attending PT
== END 2022-02-10 12:35 ==
LOC: PHYS 07:30
PROVIDERS: PCP Family Medicine; Referring Provider Family Medicine; Visit Provider Family Medicine
DX: M25.562 Pain in left knee (principal)
CPT/HCPCS: 97110; 97161; 97535